=== PATIENT | female | born 1945 | race Caucasian/White ===

== ENCOUNTER 2017-05-01 11:43 | Inpatient (IN) | payer MEDICARE ==
[~2017-05-01] VITALS: Ht 160 cm; Wt 102.4 kg
[2017-05-19] MEDS ORDERED: GLUC500T4 PO (10:41)
[2017-05-19] MEDS ORDERED: OMEGCAP PO (10:41)
[2017-05-19] MEDS ORDERED: LEVO88TA2 PO (10:41)
[2017-05-19] MEDS ORDERED: CO Q100C9 PO (10:42)
[2017-05-19] MEDS ORDERED: CALTCHW5 PO (10:43)
[2017-05-19] MEDS ORDERED: DICL75TA PO (10:45)
[2017-05-29 05:58] VITALS: BP 143/64; PULSE 63; RESP 18; TEMP 98.7; O2SAT 95
[2017-05-29] MEDS ORDERED: INSULIN HUMAN REGULAR 1,000 UNITS/10 ML VIAL SQ PRN (06:00)
[2017-05-29] MEDS ORDERED: LACTATED RINGER'S 1000 ML IV PRN (06:00)
[2017-05-29] MEDS ORDERED: SODIUM CHLORID 0.9% 500 ML IV PRN (06:00)
[2017-05-29] MEDS ORDERED: POVIDONE IODINE 5% (ANTISEPSIS KIT) 4 APPLICATIONS EACH NARE PRN (06:00)
[2017-05-29] MEDS ORDERED: CHLORHEXIDINE GLUCONATE 4% SOLN 120 ML BTL TOPICAL SCH (06:00)
[2017-05-29] MEDS ORDERED: CHLORHEXIDINE GLUCONATE 2 % 1 PACK (2 CLOTHS) TOPICAL PRN (06:00)
[2017-05-29] MEDS ORDERED: METOPROLOL TARTRATE 25 MG TAB PO PRN (06:00)
[2017-05-29] MEDS ORDERED: ceFAZolin 2 GM PREMIX 50 ML IV SCH (06:00)
[2017-05-29] MEDS ORDERED: DEXAMETHASONE SOD PHOS 4 MG/ML VIAL ONE (06:37)
[2017-05-29] MEDS ORDERED: ACETAMINOPHEN 1000 MG/100 ML VIAL IV ONE (06:37)
[2017-05-29] MEDS ORDERED: FAMOTIDINE 20 MG/2 ML VIAL ONE (06:37)
[2017-05-29] MEDS ORDERED: SODIUM CHLORIDE 0.9% IV SCH ×2 (07:00→10:00)
[2017-05-29] MEDS ORDERED: TRANEXAMIC ACID IV SCH ×2 (07:00→10:00)
[2017-05-29] MEDS ORDERED: EXPAREL PERI-ARTICULAR INJECTION (TOTAL VOL. 100 ML) P-ARTICULR SCH ×2 (07:00)
[2017-05-29] MEDS ORDERED: GENTAMICIN SULFATE 80 MG/2 ML VIAL ONE (07:39)
[2017-05-29] MEDS: LACTATED RINGER'S 1000 ML INJ 1,000 ML IV SCH ×2 (08:52→21:22)
[2017-05-29] MEDS ORDERED: BUPIVACAINE LIPOSOME PF 1.3% 20 ML VIAL ONE (08:54)
--- NOTE | 2017-05-29 08:58 | HHI.FF ---
Face to Face Verification Diagnosis: (1) Status post total left knee replacement Physical Therapy Gait training Knee: Total knee, Protocol: Left, Gait training, Full weight bearing Left LE Weight Bearing: WB as tolerated Left LE Range of Motion: Active ROM (AROM, AAROM, PROM, PRE. ROM goal is 0 to 130 degrees. ROM in the OR was 0 to 140 degrees.) Nursing Nursing: Dressing changes Dressing Changes: Daily dressing change, Coverderm/Primapore Additional Instructions Remove steristrips on postop day 14. I have seen patient Susy Rowland on 05/29/17. My clinical findings support the need for the requested home health care services because: Ltd mobility - disease progression Limited ability to care for self High risk of falls I certify that my clinical findings support that this patient is homebound because: Post-op weakness Unsteady gait/balance Unsafe to leave home unassisted Latoya Winter MD ([place]) May 29, 2017 08:58
[2017-05-29] MEDS ORDERED: MORPHINE SULFATE 4 MG/ML INJ IV PUSH PRN (09:00)
[2017-05-29] MEDS: SODIUM CHLORIDE 0.9% FLUSH 5 ML FLUSH IVF SCH ×2 (09:00→19:43)
[2017-05-29] MEDS ORDERED: SODIUM CHLORIDE 0.9% FLUSH 5 ML FLUSH IVF PRN (09:00)
[2017-05-29] MEDS ORDERED: NON-FORMULARY DRUG (Fish Oil-Cholecalciferol (Omega-3 Fish Oil/Vitamin) 1 CAP) PO SCH (09:00)
[2017-05-29] MEDS ORDERED: MAGNESIUM HYDROXIDE SUSP 30 ML CUP PO PRN (09:00)
[2017-05-29] MEDS ORDERED: TRANEXAMIC ACID INJ 0 MG in SODIUM CHLORIDE 0.9% INJ 100 ML IV SCH (09:00)
[2017-05-29] MEDS ORDERED: NON-FORMULARY DRUG (Coenzyme Q10 (Ubidecarenone) (Co Q 10) 100 MG) PO SCH (09:00)
[2017-05-29] MEDS ORDERED: NON-FORMULARY DRUG (Glucosamine-Chondroitin 1 TAB) PO SCH (09:00)
[2017-05-29] MEDS ORDERED: Post-op Orders (for Pharmacy) MISC XX ONE (09:00)
[2017-05-29] MEDS ORDERED: ONDANSETRON HCL 4 MG/2 ML VIAL IVP PRN (09:00)
[2017-05-29] MEDS ORDERED: ASPI-99 PO (09:01)
[2017-05-29] MEDS ORDERED: DO NOT ADM ANY ANTICOAGULANT DRUGS PRN (09:16)
[2017-05-29] MEDS ORDERED: MIDAZOLAM HCL 2 MG/2 ML VIAL ONE (09:24)
[2017-05-29] MEDS ORDERED: LACTATED RINGER'S 1000 ML INJ 1,000 ML IV ONE (09:39)
[2017-05-29] MEDS ORDERED: ONDANSETRON HCL 4 MG/2 ML VIAL IV PUSH ONE (09:39)
[2017-05-29] MEDS ORDERED: PROPOFOL 200 MG/20 ML AMP IV ONE (09:39)
[2017-05-29] MEDS ORDERED: *morphine SULFATE 8 MG/ML PERIprocedure ONLY ONE (09:52)
[2017-05-29] MEDS: KETOROLAC TROMETHAMINE 30 MG/ML (IVP) VIAL IVP SCH ×3 (09:57→22:30)
--- NOTE | 2017-05-29 10:16 | RADRPT ---
EXAM DATE/TIME: 05/29/2017 09:50 [place] COMPARISON: No previous studies available for comparison. INDICATIONS : Post op left total knee. MEDICAL HISTORY : Unobtainable. SURGICAL HISTORY : Unobtainable. ENCOUNTER: Initial ACUITY: 1 day PAIN SCORE: Non-responsive. LOCATION: Left knee FINDINGS: Patient is status post placement of a left knee prosthesis. There is good position and alignment of t he prosthesis and bony structures. The bony structures are grossly intact. Postsurgical changes are p resent. CONCLUSION: Good position and alignment on this postoperative examination. Rafael Rubi MD on May 29, 2017 at 10:13 Board Certified Radiologist. This report was verified electronically.
[2017-05-29] MEDS: CALCIUM/VITAMIN D 250 MG/125 U TAB PO SCH ×2 (11:11→19:42)
[2017-05-29] MEDS: ACETAMINOPHEN/HYDROcodone 325 MG/7.5 MG TAB PO PRN ×2 (11:11→22:30)
[2017-05-29 11:27] VITALS: BP 169/73; PULSE 68; RESP 17; TEMP 95.2; O2SAT 99
--- NOTE | 2017-05-29 13:22 | PD.CONS ---
HPI Service [facility] Consult Requested By Dr. Xavi Winter Reason for Consult Medical management Primary Care Physician No Primary Care Physician Diagnoses: History of Present Illness This is a 72-year-old female with a history of left knee pain secondary to osteoarthritis. She underwent elective total knee arthroplasty with nerve block by Dr. Winter who requested consultation to evaluate and manage medical conditions. Anesthesia records reviewed she received 1000 mL crystalloid and EBL of 150 mL. At this time, she has no complaints tolerated lunch. Denies nausea and pain. States her only medical condition is hypothyroidism controlled on Synthroid. All other systems reviewed negative Review of Systems Except as stated in HPI: all other systems reviewed are Neg Past Family Social History Allergies: Coded Allergies: Lactose (Unverified Allergy, Severe, GI SYMPTOMS, 05/19/17) Wheat (Unverified Allergy, Severe, GI SYMP., RASH, 05/19/17) Past Medical History As previously mentioned Past Surgical History Right knee replacement. Tubal ligation Reported Medications Fish oil, diclofenac, coq10, glucosamine, calcium and levothyroxine Family History CAD and hypertension Social History Drinks wine does not smoke. She lives alone Physical Exam Vital Signs Vital Signs Date Time Temp Pulse Resp B/P Pulse Ox O2 Delivery O2 Flow Rate FiO2 05/29/17 11:27 95.2 68 17 169/73 99 05/29/17 10:45 61 20 141/65 96 Room Air 05/29/17 10:30 62 20 135/62 98 Room Air 05/29/17 10:15 61 20 144/65 98 Room Air 05/29/17 10:00 62 22 143/58 97 Room Air 05/29/17 09:45 62 22 157/67 98 Room Air 05/29/17 09:30 62 22 121/56 97 Room Air 05/29/17 09:21 98.3 61 22 124/62 95 Room Air 05/29/17 05:58 98.7 63 18 143/64 95 Physical Exam GENERAL: This is a well-nourished, well-developed patient, in no apparent distress. SKIN: No rashes, ecchymoses or lesions. Cool and dry. HEAD: Atraumatic. Normocephalic. No temporal or scalp tenderness. EYES: Pupils equal round and reactive. Extraocular motions intact. No scleral icterus. No injection or drainage. ENT: Nose without bleeding, purulent drainage or septal hematoma. Throat without erythema, tonsillar hypertrophy or exudate. Uvula midline. Airway patent. NECK: Trachea midline. No JVD or lymphadenopathy. Supple, nontender, no meningeal signs. CARDIOVASCULAR: Regular rate and rhythm without murmurs, gallops, or rubs. RESPIRATORY: Clear to auscultation. Breath sounds equal bilaterally. No wheezes , rales, or rhonchi. GASTROINTESTINAL: Abdomen soft, non-tender, nondistended. No guarding. MUSCULOSKELETAL: Extremities without clubbing, cyanosis, or edema. Left lower extremity with thick dry clean dressing NEUROLOGICAL: Awake and alert. Cranial nerves II through XII intact. Motor and sensory grossly within normal limits. Five out of 5 muscle strength in all muscle groups. Normal speech. Laboratory Preop evaluation reviewed white count 7000 hemoglobin 14. A 34 INR 0.9 BMP Remarkable for Sodium 144 Potassium 4.4 Creatinine 1.61 Urinalysis Unremarkable EKG Tracing Interpreted by Me with Sinus Rhythm Laboratory Tests Test 05/29/17 06:03 Blood Type A NEGATIVE Antibody Screen NEGATIVE Assessment and Plan Assessment and Plan This is a 72-year-old female with a history of left knee pain secondary to osteoarthritis. She underwent elective total knee arthroplasty with nerve block by Dr. Winter. Stable continue postoperative care with wound care, physical therapy, incentive spirometry, pain management with Lortab, IV ketorolac and IV morphine sulfate and DVT prophylaxis per orthopedic surgery . Repeat hemoglobin and hematocrit to monitor for postop anemia Hypothyroidism controlled on Synthroid. Discussed Condition With Patient and brother Fredis Bejarano MD May 29, 2017 13:22
[2017-05-29 16:00] VITALS: BP 128/58; PULSE 57; RESP 17; TEMP 97.1; O2SAT 97
[2017-05-29 20:39] VITALS: BP 111/60; PULSE 60; RESP 17; TEMP 97.5; O2SAT 96
[2017-05-29] MEDS ORDERED: ZOLPIDEM TARTRATE 5 MG TAB PO PRN (21:00)
[2017-05-29 21:51] VITALS: O2SAT 97
[2017-05-30] VITALS (8 sets, daily range): BP systolic 101–138; BP diastolic 46–58; PULSE 52–73; RESP 16–18; TEMP 96.3–99.3; O2SAT 95–99
[2017-05-30] MEDS: KETOROLAC TROMETHAMINE 30 MG/ML (IVP) VIAL IVP SCH ×2 (04:31→10:00)
[2017-05-30] MEDS: ACETAMINOPHEN/HYDROcodone 325 MG/7.5 MG TAB PO PRN ×4 (04:37→20:02)
[2017-05-30 05:44] LABS: HEMATOCRIT 33.4 % (35.0-46.0); REVIEW FLAG FINAL
[2017-05-30] MEDS: LEVOTHYROXINE SODIUM 88 MCG TAB PO SCH (06:07)
--- NOTE | 2017-05-30 08:05 | PD.ORT.PN ---
Subjective Post Op Day #: 1 Subjective Remarks She is doing well, with minimal pain. Range of Motion -17 to 87 degrees. Distance Walked 15 feet with side steps. Objective Vitals Vital Signs Date Time Temp Pulse Resp B/P Pulse Ox O2 Delivery O2 Flow Rate FiO2 05/30/17 04:50 96.3 54 17 101/50 97 05/30/17 00:55 96.8 57 17 111/58 98 05/29/17 21:51 97 21 05/29/17 20:39 97.5 60 17 111/60 96 05/29/17 16:00 97.1 57 17 128/58 97 05/29/17 11:27 95.2 68 17 169/73 99 05/29/17 10:45 61 20 141/65 96 Room Air 05/29/17 10:30 62 20 135/62 98 Room Air 05/29/17 10:15 61 20 144/65 98 Room Air 05/29/17 10:00 62 22 143/58 97 Room Air 05/29/17 09:45 62 22 157/67 98 Room Air 05/29/17 09:30 62 22 121/56 97 Room Air 05/29/17 09:21 98.3 61 22 124/62 95 Room Air I/O 05/29/17 05/29/17 05/29/17 05/30/17 05/30/17 05/30/17 07:00 15:00 23:00 07:00 15:00 23:00 Intake Total 1775 ml 480 ml 240 ml Output Total 300 ml 200 ml Balance 1475 ml 280 ml 240 ml Intake Oral 400 ml 480 ml 240 ml IV Total 375 ml Other 1000 ml Drainage Total 150 ml 200 ml Estimated Blood Loss 150 ml # Voids 2 2 1 # Bowel Movements 0 0 0 Result Diagram: 05/30/17 0500 Imaging Last 24 hours Impressions Knee X-Ray 05/29/17 0865 Signed Impressions: Service Date/Time: Monday, May 29, 2017 09:50 - CONCLUSION: Good position and alignment on this postoperative examination. Rafael Rubi MD Objective Remarks She is OOB in the chair, actively moving her knee. The neurovascular status is intact. The dressing is dry and intact. Assessment & Plan Ortho Post Op Day #: 1 Problem List: (1) Status post total left knee replacement Plan: Continue postop care and PT. Assessment and Plan Condition: Good. Orthopaedically stable. DVT prophylaxis: ASA, TEDs, sequentials. Discharge plans: Home with C. Has appointment. Rx: [place] 7.5/325. Latoya Winter MD ([place]) May 30, 2017 08:05
[2017-05-30] MEDS ORDERED: HYDR-3580 PO (08:57)
[2017-05-30] MEDS: SODIUM CHLORIDE 0.9% FLUSH 5 ML FLUSH IVF SCH ×2 (09:00→20:02)
[2017-05-30] MEDS: CALCIUM/VITAMIN D 250 MG/125 U TAB PO SCH ×2 (09:06→19:59)
[2017-05-30] MEDS: ASPIRIN EC 81 MG TABEC PO SCH ×2 (09:07→20:00)
[2017-05-30] MEDS: LACTATED RINGER'S 1000 ML INJ 1,000 ML IV SCH ×2 (09:07→20:02)
--- NOTE | 2017-05-30 10:22 | HHI.PR ---
Subjective Remarks Follow-up orthopedic surgery. She had transient dizziness when hour after taking pain pill. No syncope, chest pain, shortness of breath and palpitations. All other systems reviewed negative. Seen with family. Discussed with RN Objective Vitals Vital Signs Date Time Temp Pulse Resp B/P Pulse Ox O2 Delivery O2 Flow Rate FiO2 05/30/17 08:00 96.3 52 16 108/53 99 05/30/17 04:50 96.3 54 17 101/50 97 05/30/17 00:55 96.8 57 17 111/58 98 05/29/17 21:51 97 21 05/29/17 20:39 97.5 60 17 111/60 96 05/29/17 16:00 97.1 57 17 128/58 97 05/29/17 11:27 95.2 68 17 169/73 99 05/29/17 10:45 61 20 141/65 96 Room Air 05/29/17 10:30 62 20 135/62 98 Room Air I/O 05/29/17 05/29/17 05/29/17 05/30/17 05/30/17 05/30/17 07:00 15:00 23:00 07:00 15:00 23:00 Intake Total 1775 ml 480 ml 240 ml Output Total 300 ml 200 ml Balance 1475 ml 280 ml 240 ml Intake Oral 400 ml 480 ml 240 ml IV Total 375 ml Other 1000 ml Drainage Total 150 ml 200 ml Estimated Blood Loss 150 ml # Voids 2 2 1 # Bowel Movements 0 0 0 Result Diagram: 05/30/17 0500 Imaging Last Impressions Knee X-Ray 05/29/17 0852 Signed Impressions: Service Date/Time: Monday, May 29, 2017 09:50 - CONCLUSION: Good position and alignment on this postoperative examination. Rafael Rubi MD Objective Remarks GENERAL: This is a well-nourished, well-developed patient, in no apparent distress. SKIN: No rashes, ecchymoses or lesions. Cool and dry. HEAD: Atraumatic. Normocephalic. No temporal or scalp tenderness. EYES: Pupils equal round and reactive. Extraocular motions intact. No scleral icterus. No injection or drainage. ENT: Nose without bleeding, purulent drainage or septal hematoma. Throat without erythema, tonsillar hypertrophy or exudate. Uvula midline. Airway patent. NECK: Trachea midline. No JVD or lymphadenopathy. Supple, nontender, no meningeal signs. CARDIOVASCULAR: Regular rate and rhythm without murmurs, gallops, or rubs. RESPIRATORY: Clear to auscultation. Breath sounds equal bilaterally. No wheezes , rales, or rhonchi. GASTROINTESTINAL: Abdomen soft, non-tender, nondistended. No guarding. MUSCULOSKELETAL: Extremities without clubbing, cyanosis, or edema. Left lower extremity with thick dry clean dressing on a CPM NEUROLOGICAL: Awake and alert. Cranial nerves II through XII intact. Motor and sensory grossly within normal limits. Five out of 5 muscle strength in all muscle groups. Normal speech. A/P Assessment and Plan This is a 72-year-old female with a history of left knee pain secondary to osteoarthritis. She underwent elective total knee arthroplasty with nerve block by Dr. Winter. Stable. Complained of transient dizziness after taking Lortab. No hemodynamic instability. Continue postoperative care with wound care, physical therapy, incentive spirometry, pain management with Lortab , IV ketorolac and IV morphine sulfate and DVT prophylaxis per orthopedic surgery . Postoperative anemia secondary to acute blood loss. Hemodynamically stable. Repeat hemoglobin in the morning Hypothyroidism controlled on Synthroid. Discharge Planning Discharge per orthopedic surgery Fredis Bejarano MD May 30, 2017 10:21
--- NOTE | 2017-05-30 17:12 | MP ---
cc: Maximino WOOTEN. DATE OF SURGERY 05/28/2017 PREOPERATIVE DIAGNOSIS Primary osteoarthritis of the left knee. POSTOPERATIVE DIAGNOSIS Primary osteoarthritis of the left knee. OPERATION PERFORMED Left total knee arthroplasty with [employer] Triathlon prosthesis ((uncemented). SURGEON Manuel Wooten MD. SEWER TAPPER KALEIGH Del Rosario. ANESTHESIA Spinal with supplemental adductor canal block and local. INDICATIONS AND FINDINGS This 72-year-old woman has had at least 18 months history of left knee pain which is progressively worsening and has become functionally disabled for activities of daily living. Ambulation tolerance is two miles as long as she does not walk quickly and on a flat level surface. She has pain when standing from sitting and from sitting in general. She has pain when bearing weight. She has giving-way. She has not responded to nonsteroidal anti-inflammatory agents, activity modification, exercise, intra-articular corticosteroids, ambulatory aids. Physical findings showed genu varum with tenderness in the medial compartment primarily. There is crepitation in the medial and patellofemoral compartments. X-rays showed loss of articular cartilage to [id number] in the PA flexion view and medial compartment with medial and lateral osteophytes and patellofemoral osteophytes as well as eburnation particularly in the medial compartment. Operative findings were consistent with the radiographic findings with there being predominantly medial and patellofemoral osteoarthritis with exposed subchondral bone in the medial compartment diffusely. There was some change in the lateral compartment and patellofemoral compartment as well. The prosthesis used was a [place] Triathlon prosthesis with the femur being a size 5 left cruciate-retaining Press-Fit, the tibia being a baseplate of size 5 titanium uncemented with the spacer being a size 5 x 9 mm cruciate-retaining and the patella being a size 38 asymmetric titanium backed patella. PROCEDURE The patient was brought to the clean-air operating room and a spinal anesthetic was administered followed by an adductor canal block. The patient was placed in a supine position on the operating table with a small bolster under the left hip and a pneumatic tourniquet about the left thigh. The left leg was then prepped with alcohol, Hibiclens and Chloraprep and draped in the usual manner with the knee draped free. An appropriate time-out procedure was carried out. Local anesthesia was administered in the incision site. Anterior incision was then made from about three fingerbreadths above the superior medial pole patella down to the tibial tubercle on the medial side. The incision was deepened through subcutaneous tissues to the retinacular structures which were exposed medially and laterally. A medial retinacular incision was then made from the superior medial pole of patella down to the tibial tubercle and up into the quadriceps tendon splitting it longitudinally in the medial one-third. The patella was reflected. The infrapatellar fat pad was debulked. Medial and lateral dissection was carried out. The posterior surface of the patella was excised with the oscillating saw taking care to prevent injury to ligamentous structures. A patella protector was applied. The patella was slipped in to a lateral gutter. Fenestration were made in the distal end of the femur and proximal end of the tibia for intramedullary referencing guides. The distal femoral cutting guide and block were assembled for 5 degree 8-mm cut. The cutting block was stabilized with pins. The jig was removed. The distal femoral cut was completed with the oscillating saw. The sizing guide was then positioned in place and sizing of the femur was carried out. The appropriate size 4:1 block was then placed onto the femur and stabilized with pins. Anterior and posterior cuts were made followed by posterior and anterior chamfer cuts. Osteophytes were trimmed from the femur. Attention was directed the tibia. Medial and lateral meniscectomies were completed. The intramedullary referencing guide was positioned in place and the cutting guide was stabilized for rotation followed by verifying the depth of cut using the stylus. The cutting block was stabilized with pins. The jig was removed. The spacer block was then used to verify and adjust the appropriate level of the tibial cut. Tibial cutting block was stabilized with an additional pin. The proximal tibial cut was then completed with the oscillating saw taking care to prevent injury to neurovascular and ligamentous structures. The spacer block was then used to verify that this was an appropriate cut. The tibial baseplate trial was positioned in place and appeared to be appropriate as noted above. The spacer was inserted. The femoral trial was impacted into place and seated appropriately. The tibial component was adjusted as far as position was concerned and then stabilized with pins. The patella drill holes were then made for the appropriate size patella. The trial patella was positioned in place. The knee was taken through a range of motion. The stability was excellent. Tracking was appropriate. The range of motion was 0 degrees extension to 135 degrees by gravity. This went additional 5 degrees with slight pressure. The patella trial was removed. Femoral drill holes were made. The femoral trial was removed. The tibial spacer was removed. Bone plugs were placed in the distal femur and proximal tibia. The tibial punch was impacted into place. The trial and punch were removed. The tibial drill guide was positioned in place and drill holes made. The cut ends of bone were cleaned with pulse lavage. Local anesthesia was administered throughout the knee with Exparel. The tibial baseplate was then impacted into place and seated appropriately. The spacer was inserted and impacted into place. The femoral component was then impacted into place and seated appropriately. The patella was seated in place and tightened appropriately with the patella vice. The knee was taken through a range of motion which was comparable to that found preoperatively. Tracking was appropriate again. Drains were brought out the superolateral aspect of the suprapatellar pouch. The remainder of the knee was then anesthetized with the remainder of the Exparel. The wound was then closed in layers using 0 Vicryl interrupted [id number] sutures for capsular and retinacular structures, 2-0 Vicryl interrupted simple sutures with buried knots for the subcutaneous tissues and 4-0 Monocryl continuous subcuticular closure for the skin. The wound was dressed with Steri-Strips followed by dry dressing, Sof-Rol, cooling pad, further sterile Sof-Rol and Carter bandage from the base of the toe to midthigh. The patient was transferred from the operating room to the recovery room in satisfactory condition having tolerated the procedure well. Counts were correct. Specimens none. Estimated blood loss 200 mL. MD NACHO Fu/ALESSANDRA /9:11 AM /4:59 PM
[2017-05-30] MEDS: DICLOFENAC SODIUM 75 MG DELAYED RELEASE TAB PO SCH (19:59)
[2017-05-30] MEDS: DOCUSATE SODIUM 100 MG CAP PO SCH (19:59)
[2017-05-31] MEDS: ACETAMINOPHEN/HYDROcodone 325 MG/7.5 MG TAB PO PRN ×3 (00:16→13:56)
[2017-05-31 04:46] VITALS: BP 130/64; PULSE 76; RESP 17; TEMP 98.8; O2SAT 97
[2017-05-31] MEDS: LEVOTHYROXINE SODIUM 88 MCG TAB PO SCH (05:30)
--- NOTE | 2017-05-31 07:29 | PD.ORT.PN ---
Subjective Post Op Day #: 2 Subjective Remarks She is doing well, with minimal pain. It is well controlled with [place]. Range of Motion -10 to 100 degrees. Distance Walked 130, then 200 feet. Objective Vitals Vital Signs Date Time Temp Pulse Resp B/P Pulse Ox O2 Delivery O2 Flow Rate FiO2 05/31/17 04:46 98.8 76 17 130/64 97 05/30/17 23:36 99.3 73 18 138/55 95 05/30/17 21:00 18 05/30/17 20:36 98.5 69 18 124/54 98 05/30/17 18:11 98 21 05/30/17 16:00 98.2 65 16 117/46 97 05/30/17 11:55 97.1 54 16 105/48 98 05/30/17 08:00 96.3 52 16 108/53 99 I/O 05/30/17 05/30/17 05/30/17 05/31/17 05/31/17 05/31/17 07:00 15:00 23:00 07:00 15:00 23:00 Intake Total 240 ml 960 ml 360 ml Output Total 115 ml 60 ml Balance 240 ml 845 ml 300 ml Intake Oral 240 ml 960 ml 360 ml Drainage Total 115 ml 60 ml # Voids 1 3 1 # Bowel Movements 0 0 0 Result Diagram: 05/30/17 0500 Imaging Last 24 hours Impressions Knee X-Ray 05/29/17 0852 Signed Impressions: Service Date/Time: Monday, May 29, 2017 09:50 - CONCLUSION: Good position and alignment on this postoperative examination. Rafael Rubi MD Objective Remarks She is resting comfortably, supine in bed in the CPM.. The neurovascular status is intact. The dressing is dry and intact. Assessment & Plan Ortho Post Op Day #: 2 Problem List: (1) Status post total left knee replacement Plan: Continue postop care and PT. Assessment and Plan Condition: Good. Orthopaedically stable. DVT prophylaxis: ASA, TEDs, sequentials. Discharge plans: Home with [facility]. Has appointment. Rx: [place] 7.5/325. Latoya Winter MD ([place]) May 31, 2017 07:29
[2017-05-31 07:50] LABS: HEMATOCRIT 32.2 % (35.0-46.0); REVIEW FLAG FINAL
[2017-05-31 08:00] VITALS: BP 115/54; PULSE 55; RESP 16; TEMP 97.9; O2SAT 94
[2017-05-31 08:47] VITALS: O2SAT 95
[2017-05-31] MEDS: SODIUM CHLORIDE 0.9% FLUSH 5 ML FLUSH IVF SCH (09:00)
[2017-05-31] MEDS: ASPIRIN EC 81 MG TABEC PO SCH (09:00)
--- NOTE | 2017-05-31 09:00 | HHI.PR ---
Subjective Remarks Follow orthopedic surgery, anemia and dizziness. Doing ok ready to go no dizziness dw RN Objective Vitals Vital Signs Date Time Temp Pulse Resp B/P Pulse Ox O2 Delivery O2 Flow Rate FiO2 05/31/17 08:00 97.9 55 16 115/54 94 05/31/17 04:46 98.8 76 17 130/64 97 05/30/17 23:36 99.3 73 18 138/55 95 05/30/17 21:00 18 05/30/17 20:36 98.5 69 18 124/54 98 05/30/17 18:11 98 21 05/30/17 16:00 98.2 65 16 117/46 97 05/30/17 11:55 97.1 54 16 105/48 98 I/O 05/30/17 05/30/17 05/30/17 05/31/17 05/31/17 05/31/17 07:00 15:00 23:00 07:00 15:00 23:00 Intake Total 240 ml 960 ml 360 ml 240 ml Output Total 115 ml 60 ml Balance 240 ml 845 ml 300 ml 240 ml Intake Oral 240 ml 960 ml 360 ml 240 ml Drainage Total 115 ml 60 ml # Voids 1 3 1 1 # Bowel Movements 0 0 0 0 Result Diagram: 05/31/17722 Imaging Last Impressions Knee X-Ray 05/29/17 0852 Signed Impressions: Service Date/Time: Monday, May 29, 2017 09:50 - CONCLUSION: Good position and alignment on this postoperative examination. Rafael Rubi MD Objective Remarks GENERAL: This is a well-nourished, well-developed patient, in no apparent distress. SKIN: No rashes, ecchymoses or lesions. Cool and dry. HEAD: Atraumatic. Normocephalic. No temporal or scalp tenderness. EYES: Pupils equal round and reactive. Extraocular motions intact. No scleral icterus. No injection or drainage. ENT: Nose without bleeding, purulent drainage or septal hematoma. Throat without erythema, tonsillar hypertrophy or exudate. Uvula midline. Airway patent. NECK: Trachea midline. No JVD or lymphadenopathy. Supple, nontender, no meningeal signs. CARDIOVASCULAR: Regular rate and rhythm without murmurs, gallops, or rubs. RESPIRATORY: Clear to auscultation. Breath sounds equal bilaterally. No wheezes , rales, or rhonchi. GASTROINTESTINAL: Abdomen soft, non-tender, nondistended. No guarding. MUSCULOSKELETAL: Extremities without clubbing, cyanosis, or edema. Left lower extremity with thick dry clean dressing NEUROLOGICAL: Awake and alert. Cranial nerves II through XII intact. Motor and sensory grossly within normal limits. Five out of 5 muscle strength in all muscle groups. Normal speech. A/P Assessment and Plan This is a 72-year-old female with a history of left knee pain secondary to osteoarthritis. She underwent elective total knee arthroplasty with nerve block by Dr. Winter. Stable. Complained of transient dizziness after taking Lortab. No hemodynamic instability. Continue postoperative care with wound care, physical therapy, incentive spirometry, pain management with Lortab , IV ketorolac and IV morphine sulfate and DVT prophylaxis per orthopedic surgery . Postoperative anemia secondary to acute blood loss. Hemodynamically stable. Repeat hemoglobin 10.8 Hypothyroidism controlled on Synthroid. Discharge Planning Stable for discharge Fredis Bejarano MD May 31, 2017 09:00
[2017-05-31] MEDS: CALCIUM/VITAMIN D 250 MG/125 U TAB PO SCH (09:01)
[2017-05-31] MEDS: DOCUSATE SODIUM 100 MG CAP PO SCH (09:01)
[2017-05-31] MEDS: DICLOFENAC SODIUM 75 MG DELAYED RELEASE TAB PO SCH (09:01)
[2017-05-31] MEDS: LACTATED RINGER'S 1000 ML INJ 1,000 ML IV SCH (09:03)
[2017-05-31 12:25] VITALS: BP 105/50; PULSE 59; RESP 16; TEMP 96.7; O2SAT 100
== END 2017-05-31 16:09 | disposition home health service (06) | DRG 470 ==
LOC: HSDI 05-29 05:28 → N06B 05-29 10:57
PROVIDERS: ADMIT Orthopaedic Surgery; ATTEND Orthopaedic Surgery
PROC: 3E0T3CZ (ICD-10-PCS; 2017-05-29)
PROC: 0SRD0JA Replacement of Left Knee Joint with Synthetic Substitute, Uncemented, Open Approach (ICD-10-PCS; principal; 2017-05-29 06:37)
DX: M17.12 Unilateral primary osteoarthritis, left knee (principal); D62 Acute posthemorrhagic anemia; E03.9 Hypothyroidism, unspecified; M21.162 Varus deformity, not elsewhere classified, left knee; M25.762 Osteophyte, left knee; R42 Dizziness and giddiness
CPT/HCPCS: 73560; 85014; 85018; 86850; 86900; 86901; 94150; C1776; C9290; J0131; J0690; J1100; J1580; J1885; J2250; J2270; J2405; J7120

== ENCOUNTER → 2017-05-19 | Outpatient (CLI) | payer MEDICARE ==
[~2017-05-19] MED LIST: ASPI-99 PO; CALTCHW5 PO; CALTTAB2 PO; CO Q100C9 PO; DICL75TA PO; FISH1000 PO; GLUC500T4 PO; GLUCTAB6 PO; HYDR-3580 PO; IRON27TA PO; LEVO100T4 PO; LEVO88TA2 PO; MAGN30S PO; OMEGCAP PO; OXYC-360 PO; XARE10TA PO
[2017-05-19 08:37] LABS: HEMATOCRIT 43.3 % (35.0-46.0); MEAN CELL VOLUME 90.7 FL (80.0-100.0); MEAN CORPUSCULAR HEMOGLOBIN 30.3 PG (27.0-34.0); MEAN CORPUSCULAR HGB CONC 33.4 % (32.0-36.0); PLATELET COUNT 234 TH/MM3 (150-450); RED BLOOD COUNT 4.77 MIL/MM3 (4.00-5.30); RED CELL DISTRIBUTION WIDTH 13.4 % (11.6-17.2); REVIEW FLAG FINAL; WHITE BLOOD COUNT 7.2 TH/MM3 (4.0-11.0)
[2017-05-19 08:47] LABS: APTT (PATIENT) 28.9 SEC (24.3-30.1); INTERNATIONAL NORMALIZED RATIO 0.9 RATIO; PROTHROMBIN TIME - PATIENT 10.3 SEC (9.8-11.6)
[2017-05-19 10:06] LABS: BLOOD, URINE NEG (NEG); COMMENT (UR) CULT NOT INDICATED; CULTURE IF INDICATED CULT NOT INDICATED; GLUCOSE,URINE NEG (NEG); KETONE, URINE NEG (NEG); NITRITE,URINE NEG (NEG); SQUAMOUS EPITHELIAL CELL URINE <1 /hpf (0-5); URINE COLOR LIGHT-YELLOW (YELLW/STRAW)
[2017-05-19 10:57] LABS: POTASSIUM 4.4 MEQ/L (3.5-5.1)
--- NOTE | 2017-05-19 16:40 | EKG ---
Date Performed: 05/19/2017 Time Performed: 08:57:29 PTAGE: 72 years EKG: SINUS BRADYCARDIA MINIMAL ST DEPRESSION BORDERLINE ECG PREVIOUS TRACING 08/28/13@ 15.07.12 DOCTOR: Javi Dukes Interpretating Date/Time 05/19/2017 16:40:01
== END ==
LOC: CPRE 08:04
PROVIDERS: ATTEND Orthopaedic Surgery
DX: Z01.812 Encounter for preprocedural laboratory examination (principal); Z01.810 Encounter for preprocedural cardiovascular examination; M17.12 Unilateral primary osteoarthritis, left knee; M79.609 Pain in unspecified limb; R94.31 Abnormal electrocardiogram [ECG] [EKG]
CPT/HCPCS: 36415; 80048; 81001; 85027; 85610; 85730; 93005